=== PATIENT | female | born 1970 | race Caucasian/White ===

== ENCOUNTER 2019-12-04 14:08 | Outpatient (CLI) | payer OTHER | END 2019-12-04 14:21 | disposition home or self-care (01) | LOC: RAD 14:08 | DX: S62.92XD Unspecified fracture of left hand, subsequent encounter for fracture with routine healing (principal) ==

== ENCOUNTER 2023-03-27 12:39 | Outpatient (CLI) | payer OTHER | END 2023-03-27 13:04 | disposition home or self-care (01) | LOC: MAMO-SONO 12:39 | PROVIDERS: ATTEND Family Medicine | DX: N60.11 Diffuse cystic mastopathy of right breast (principal); N60.12 Diffuse cystic mastopathy of left breast; Z12.31 Encounter for screening mammogram for malignant neoplasm of breast ==